=== PATIENT | female | born 1965 | race Caucasian/White ===

== ENCOUNTER 2017-07-28 12:45 | Emergency (ER) | payer MEDICAID ==
[~2017-07-28] VITALS: Ht 147.3 cm; Wt 61.0 kg
[2017-07-28] MEDS ORDERED: NYQUIL (13:05)
[2017-07-28] MEDS ORDERED: GUAI600T26 PO (13:05)
[2017-07-28] MEDS ORDERED: ACETAMINOPHEN 325MG TABLET ONE (13:09)
[2017-07-28] MEDS ORDERED: IPRATROPIUM/ALBUTEROL 0.5-3(2.5)MG/3ML NEB HHN ONE (19:30)
[2017-07-28] MEDS ORDERED: ACETAMINOPHEN 325MG TABLET PO ONE (19:45)
[2017-07-28] MEDS ORDERED: METHYLPREDNISOLONE SOD SUCC 125 MG/2 ML VIAL IV ONE (20:15)
[2017-07-28 22:10] VITALS: BP 7/74
== END 2017-07-28 22:10 | disposition home or self-care (01) ==
LOC: ER 14:52
DX: J06.9 Acute upper respiratory infection, unspecified (principal)
CPT/HCPCS: 87804; 94640; 96374; 99284; J2930; J7620

== ENCOUNTER 2020-05-08 16:16 | Emergency (ER) | payer MEDICAID ==
[~2020-05-08] VITALS: Ht 162.6 cm; Wt 58.0 kg
[~2020-05-08 16:16] MED LIST: GUAI600T26 PO; NYQUIL
[2020-05-08] MEDS ORDERED: KETOROLAC 30MG/ML VIAL IM ONE (16:45)
[2020-05-08] MEDS ORDERED: HYDROCODONE/ACETAMINOPHEN 5/325MG TABLET PO ONE ×2 (18:30→20:00)
[2020-05-08] MEDS ORDERED: ONDANSETRON 4MG ODT PO ONE (18:30)
[2020-05-08 18:55] VITALS: BP 116/86
== END 2020-05-08 20:00 | disposition home or self-care (01) ==
LOC: ER 16:16
DX: M54.2 Cervicalgia (principal); M54.6 Pain in thoracic spine; M54.5 Low back pain; V49.49XA Driver injured in collision with other motor vehicles in traffic accident, initial encounter; Y93.89 Activity, other specified; Y92.488 Other paved roadways as the place of occurrence of the external cause
CPT/HCPCS: 72070; 72100; 72125; 96372; 99284; J1885; Q0162